=== PATIENT | male | born 1960 ===

== ENCOUNTER 2022-11-08 08:52 | Outpatient (CLI) | payer OTHER, SELFPAY ==
--- NOTE | 2022-11-08 | ECG_ITS ---
Measurements Intervals [place] Rate: 58 P: 34 FL: 154 QRS: -26 QRSD: 103 T: 6 QT: 402 QTc: 397 Interpretive Statements SINUS BRADYCARDIA BORDERLINE LEFT AXIS DEVIATION [QRS AXIS < -20] BORDERLINE VOLTAGE EVIDENCE OF LVH NO PREVIOUS ECG AVAILABLE FOR COMPARISON Electronically Signed On 11-08-2022 14:53:50 CERTIFIED [employer] [facility] [employer] by Cruz Singletary M.D.
== END 2022-11-08 08:53 | disposition home or self-care (01) ==
PROVIDERS: Visit Provider Orthopaedic Surgery
DX: Z01.818 Encounter for other preprocedural examination (principal)
CPT/HCPCS: 93005